=== PATIENT | male | born 1960 | race Caucasian/White ===

== ENCOUNTER 2016-06-15 18:01 | Inpatient (IN) | payer OTHER ==
--- NOTE | 2016-06-15 18:42 | ED ---
GI Bleed HPI - General Chief complaint: GI Bleed Stated complaint: GI bleed Time Seen by Provider: 06/15/16 18:01 Source: patient, RN/MD, EMS, RN notes reviewed, old records reviewed Mode of arrival: EMS Limitations: no limitations - History of Present Illness Initial comments: Is a 55-year-old male who was transferred from [facility] with a complaints of GI bleeding patient was seen yesterday he had a hemoglobin of about 12 today was noted to be around 8. He has had black colored diarrhea for last couple days. Some epigastric discomfort he has a history of ulcers many years ago he states he drinks only 2 beers per day he has no history of pancreatitis he has had some abdominal cramps for the past couple days. He also some lightheadedness dizziness and generalized weakness. He is having a history of seizures and peripheral vascular disease. He does still smoke. We did discuss the need for stopping this. MD complaint: melena - Related Data Home Medications Medication Instructions Recorded Confirmed Gabapentin [Neurontin] 100 mg PO TID 06/15/16 06/15/16 HYDROcodone/APAP 7.5-325MG [Rolla 1 tab PO Q6HR PRN 06/15/16 06/15/16 7.5-325] Hydrocortisone Cream 1 applic TOPICAL BID PRN 06/15/16 06/15/16 [Hydrocortisone 1% Cream] Loperamide [Imodium] 2 - 4 mg PO QID PRN 06/15/16 06/15/16 Meloxicam [Mobic] 7.5 mg PO BID 06/15/16 06/15/16 Sertraline [Zoloft] 50 mg PO BID 06/15/16 06/15/16 Triamcinolone 0.1% Cream [Kenalog] 1 applicatio TOPICAL TID 06/15/16 06/15/16 Zolpidem [Ambien] 10 mg PO HS 06/15/16 06/15/16 levETIRAcetam [Keppra Xr] 1,500 mg PO BID 06/15/16 06/15/16 Allergies Allergy/AdvReac Type Severity Reaction Status Date / Time latex Allergy Unknown Verified 06/15/16 19:08 thiopental [From Pentothal] Allergy Unknown Verified 06/15/16 19:08 phenosulfonate Allergy Unknown Uncoded 06/15/16 18:28 Review of Systems ROS Statement: Those systems with pertinent positive or pertinent negative responses have been documented in the HPI. ROS Other: All systems not noted in ROS Statement are negative. Past Medical History Past Medical History: COPD, Seizure Disorder History of Any Multi-Drug Resistant Organisms: None Reported Past Surgical History: Orthopedic Surgery Past Psychological History: Depression Smoking Status: Current every day smoker Past Alcohol Use History: Daily Past Drug Use History: None Reported General Exam - General Exam Comments Initial Comments: This is a well developed well-nourished awake alert oriented x w3 male Limitations: no limitations General appearance: alert, in no apparent distress Head exam: Present: atraumatic, normocephalic, normal inspection Eye exam: Present: normal appearance, PERRL, EOMI. Absent: scleral icterus, conjunctival injection, periorbital swelling ENT exam: Present: normal exam, mucous membranes moist Neck exam: Present: normal inspection. Absent: tenderness, meningismus, lymphadenopathy Respiratory exam: Present: normal lung sounds bilaterally. Absent: respiratory distress, wheezes, rales, rhonchi, stridor Cardiovascular Exam: Present: regular rate, normal rhythm, normal heart sounds. Absent: systolic murmur, diastolic murmur, rubs, gallop, clicks GI/Abdominal exam: Present: soft, normal bowel sounds. Absent: distended, tenderness, guarding, rebound, rigid Rectal exam: Present: deferred Extremities exam: Present: normal inspection, full ROM, normal capillary refill. Absent: tenderness, pedal edema, joint swelling, calf tenderness Back exam: Present: normal inspection Neurological exam: Present: alert, oriented X3, CN II-XII intact Psychiatric exam: Present: normal affect, normal mood Skin exam: Present: warm, dry, intact, pallor. Absent: normal color, rash Course Vital Signs 06/15/16 18:07 Temperature 97.8 F Pulse Rate 74 Respiratory 18 Rate Blood Pressure 112/73 O2 Sat by Pulse 100 Oximetry Medical Decision Making - Medical Decision Making I did review the material from the sending hospital patient will be admitted I did discuss the case with the hospitalist group. GI will be consulted. - EKG Data -: EKG Interpreted by Me EKG shows normal: sinus rhythm (Sinus rhythm with a rate of 61. Interval 162 QRS duration 82 QT/QTC of 416/418 is a sinus arrhythmia no acute changes) Disposition Clinical Impression: Melena, Anemia, GI bleed Disposition: ADMITTED IP TO THIS HOSP Condition: Stable
[2016-06-15] MEDS ORDERED: NALOXONE 0.4 MG/ML 1 ML VIAL IV PRN (19:39)
[2016-06-15] MEDS ORDERED: HYDROCORTISONE 1% CREAM 30 GM TUBE TOPICAL PRN (19:42)
[2016-06-15 20:40] LABS: CH 34.5; CHCM 32.8; HCT 21.2 % (39.0-53.0); HDW 2.25; MCH 34.6 pg (25.0-35.0); MCHC 32.8 g/dL (31.0-37.0); MCV 105.6 fL (80.0-100.0); Macrocytosis Moderate; Mean Platelet Volume 7.3; RBC 2.01 m/uL (4.30-5.90); RDW 13.8 % (11.5-15.5); WBC 5.3 k/uL (3.8-10.6)
[2016-06-15] MEDS ORDERED: ZOLPIDEM 10 MG TAB PO SCH (21:00)
[2016-06-15] MEDS ORDERED: TRIAMCINOLONE 0.1% CREAM 80 GM TUBE TOPICAL PRN (21:08)
[2016-06-15] MEDS: SODIUM CHLORIDE 0.9% 1,000 ML IV SCH (21:09)
[2016-06-15] MEDS ORDERED: FUROSEMIDE 10 MG/ML 2 ML VIAL IV ONE (21:48)
[2016-06-15] MEDS ORDERED: THIAMINE 100 MG/ML 2 ML VIAL IM STA (21:48)
[2016-06-15] MEDS ORDERED: LORazepam 2 MG/ML SYRINGE IV PRN ×3 (21:48)
[2016-06-15] MEDS: PANTOPRAZOLE 40 MG/10 ML VIAL IV SCH (21:50)
[2016-06-15] MEDS: SERTRALINE 100 MG TAB PO SCH (21:50)
[2016-06-15] MEDS: GABAPENTIN 100 MG CAP PO SCH (21:51)
[2016-06-15] MEDS: MELOXICAM 7.5 MG TAB PO SCH (21:51)
[2016-06-15] MEDS: NICOTINE 14MG/24HR PATCH TRANSDERM SCH (21:52)
[2016-06-15] MEDS ORDERED: TRIAMCINOLONE 0.1% CREAM 80 GM TUBE TOPICAL SCH (22:00)
[2016-06-15] MEDS: THIAMINE 100 MG TAB PO SCH (23:15)
[2016-06-16] MEDS ORDERED: FUROSEMIDE 10 MG/ML 2 ML VIAL ONE (02:15)
[2016-06-16] MEDS: SODIUM CHLORIDE 0.9% 1,000 ML IV SCH ×2 (07:45→21:41)
[2016-06-16] MEDS: MELOXICAM 7.5 MG TAB PO SCH (07:46)
[2016-06-16] MEDS: GABAPENTIN 100 MG CAP PO SCH ×3 (07:46→21:41)
[2016-06-16] MEDS: NICOTINE 14MG/24HR PATCH TRANSDERM SCH (07:47)
[2016-06-16] MEDS: PANTOPRAZOLE 40 MG/10 ML VIAL IV SCH ×2 (07:47→21:40)
[2016-06-16] MEDS: SERTRALINE 100 MG TAB PO SCH ×2 (07:48→21:41)
[2016-06-16] MEDS: THIAMINE 100 MG TAB PO SCH ×2 (07:48→16:33)
[2016-06-16 08:36] LABS: Anisocytosis Slight; Basophils # (A) 0.1 k/uL (0-0.2); Basophils % (A) 1 %; CH 31.5; Eosinophils # (A) 0.3 k/uL (0-0.7); Eosinophils % (A) 6 %; HCT 31.5 % (39.0-53.0); HDW 2.49; HGB 10.4 gm/dL (13.0-17.5); Luc # (Auto) 0.13; Luc % (Auto) 3; Lymphocytes # (A) 1.2 k/uL (1.0-4.8); Lymphocytes % (A) 24 %; MCH 31.7 pg (25.0-35.0); Macrocytosis Slight; Monocytes # (A) 0.3 k/uL (0-1.0); Monocytes % (A) 7 %; Neutrophils # (A) 2.9 k/uL (1.3-7.7); Neutrophils % (A) 60 %; RBC 3.28 m/uL (4.30-5.90); WBC 4.8 k/uL (3.8-10.6); WBC (Perox) 4.93
[2016-06-16 08:50] LABS: ALT 20 U/L (21-72); AST 19 U/L (17-59); Alkaline Phosphatase 56 U/L (38-126); Anion Gap 9 mmol/L; Blood Urea Nitrogen 12 mg/dL (9-20); Calcium 9.3 mg/dL (8.4-10.2); Carbon Dioxide 26 mmol/L (22-30); Chloride 106 mmol/L (98-107); Glucose 139 mg/dL (74-99); Non-African American GFR(MDRD) >60 (>60 ml/min/1.73 sqM); Potassium 4.2 mmol/L (3.5-5.1); Sodium 141 mmol/L (137-145); Total Bilirubin 1.3 mg/dL (0.2-1.3); Total Protein 6.2 g/dL (6.3-8.2)
[2016-06-16] MEDS ORDERED: NICOTINE 14MG/24HR PATCH TRANSDERM SCH (09:00)
[2016-06-16] MEDS ORDERED: MULTIVITAMINS, THERA 1 EACH TAB PO SCH (12:00)
[2016-06-16] MEDS ORDERED: LIDOCAINE 1% INJ 10MG/ML (20 ML MDV) ONE (13:51)
[2016-06-16] MEDS ORDERED: GLYCOPYRROLATE 0.2 MG/ML 2 ML VIAL ONE (13:51)
[2016-06-16] MEDS ORDERED: PROPOFOL 10 MG/ML 20 ML VIAL IV ONE (13:51)
[2016-06-16] MEDS ORDERED: IV FLUID CONTINUATION 150 ML IV ONE (13:52)
--- NOTE | 2016-06-16 14:21 | P.PCN ---
Date of Procedure: 06/16/16 Procedure(s) Performed: BRIEF HISTORY: Patient is a 55-year-old, pleasant, white male, transferred from [facility] when he presented with black tarry stools for the last 5 days duration. His hemoglobin was down to 7 g/dL and so far received 2 units of RBC transfusion. He scheduled for an upper endoscopy to evaluate further.. PROCEDURE PERFORMED: Esophagogastroduodenoscopy with biopsy. PREOPERATIVE DIAGNOSIS: Black tarry stools of 5 days duration and severe anemia. IV sedation per anesthesia. PROCEDURE: After informed consent was obtained, the patient was brought into the endoscopy unit. IV sedation was administered by Anesthesia under continuous monitoring. Initially the Olympus GIF-140 video endoscope was inserted into the mouth. Esophagus intubated without any difficulty. It was gradually advanced into the stomach and duodenum and carefully examined. The bulb and the second part of the duodenum appeared normal. The scope at this time was withdrawn to the stomach, adequately insufflated with air, and upon careful examination, mucosa of the antrum, there was a 2 cm deep clean-based ulceration identified with no active bleeding. Biopsies were done from the margin of the ulcer. The body, cardia and the fundus appeared normal. The scope was then withdrawn into the esophagus. Small hiatal hernia noted. The GE junction was located at 39 cm from the incisors. The esophagus appeared normal. There were no erosions or ulcerations seen and the patient tolerated the procedure well. IMPRESSION: 1. 2 cm clean-based antral ulcer with no active bleeding. 2. Mall hiatal hernia. RECOMMENDATIONS: The findings of this examination were discussed with the patient patient. At this time he'll be continued on Protonix 40 mg twice daily and was advised to avoid NSAIDs. He'll await the biopsy results. He'll be started on a full liquid diet today and if the hemoglobin is stable he can be advanced to regular diet tomorrow.
[2016-06-16 14:32] VITALS: BMI 19.8
[2016-06-16 14:59] LABS: Anisocytosis Slight; Basophils % (A) 1 %; CH 31.8; CHCM 33.1; Eosinophils # (A) 0.2 k/uL (0-0.7); Eosinophils % (A) 6 %; HCT 33.3 % (39.0-53.0); HDW 2.58; HGB 10.6 gm/dL (13.0-17.5); Luc # (Auto) 0.14; Luc % (Auto) 3; Lymphocytes % (A) 23 %; MCH 30.8 pg (25.0-35.0); MCHC 31.8 g/dL (31.0-37.0); MCV 96.7 fL (80.0-100.0); Macrocytosis Slight; Mean Platelet Volume 7.1; Monocytes # (A) 0.3 k/uL (0-1.0); Monocytes % (A) 8 %; Neutrophils # (A) 2.6 k/uL (1.3-7.7); Neutrophils % (A) 60 %; RBC 3.45 m/uL (4.30-5.90); RDW 19.2 % (11.5-15.5); WBC 4.3 k/uL (3.8-10.6); WBC (Perox) 4.26
--- NOTE | 2016-06-16 17:40 | CONS ---
DATE OF CONSULTATION: 06/16/2016 REASON FOR CONSULTATION: Acute GI bleed. HISTORY OF PRESENT ILLNESS: The patient is a 55-year-old pleasant white male who was transferred from [facility] last night when he presented there with black tarry stools for the last 5 days' duration. Apparently 2 days ago his hemoglobin was 12, and yesterday when he went back to the ER it was 8. He was subsequently transferred to [facility] and repeat hemoglobin here was 7. He received 2 units of PRBC transfusion. Since being over here, he has not had any further episodes of black tarry stools. He just had a couple of them yesterday. He does complain of some vague right upper quadrant abdominal pain. He reports no nausea or vomiting. No fever, chills, night sweats. He has a prior history of peptic ulcer disease in 1981. Recently he has been taking Mobic for degenerative joint disease. Past medical history is significant for: 1. Seizure disorder. 2. COPD. 3. History of peptic ulcer disease in the past. 4. Anxiety. 5. Depression. Medications at home include: 1. Neurontin. 2. [place]. 3. Hydrocortisone cream. 4. Imodium. 5. Mobic. 6. Zoloft. 7. Kenalog. 8. Ambien. 9. Keppra. ALLERGIES: PENTOTHAL and PHENOSULFONATE. SOCIAL HISTORY: Chronic smoker. No alcohol use. FAMILY HISTORY: Unremarkable. REVIEW OF SYSTEMS: CARDIOPULMONARY: No chest pain or shortness of breath. GENITOURINARY: No dysuria or hematuria. MUSCULOSKELETAL: Unremarkable. SKIN: Unremarkable. ENDOCRINE: Unremarkable. PSYCHIATRIC: Unremarkable. NEUROLOGY: Unremarkable. ENT/VISION: Unremarkable. CONSTITUTIONAL: No recent weight loss. No fever, chills, night sweats. On physical examination, he appears comfortable, in no apparent distress. Vitals signs are stable. Blood pressure is 103/66, pulse 73, temperature 98. HEENT: Unremarkable. Conjunctivae pink. Sclerae anicteric. Oral cavity with no lesions. NECK: No JVD or lymph node enlargement. Chest was clear to auscultation. HEART: Regular rate and rhythm. ABDOMEN: Soft. Bowel sounds are positive. No organomegaly. EXTREMITIES: No pedal edema. SKIN: No rashes. NEURO: He is alert and oriented x3. No focal deficits. LABS DONE AT THE TIME OF ADMISSION TO THE HOSPITAL: Hemoglobin 7, WBC 5.3, platelets 222. This morning hemoglobin is 10.4. IMPRESSION: Acute upper gastrointestinal bleed, possibly related to peptic ulcer disease. Patient has been having black tarry stools for the last 5 days' duration, dropped hemoglobin from 12 to 7 grams/dL requiring 2 units of blood transfusion. At present he is on IV proton pump inhibitors. He is hemodynamically stable. He still had 2 large black tarry stools last night; none this morning. RECOMMENDATIONS: 1. Will proceed with an upper endoscopy today. 2. Continue with IV proton pump inhibitors. 3. Avoid NSAIDs. 4. CBC every 6 hours. Will follow him closely during his hospital stay. Thank you for this consultation.
[2016-06-16] MEDS: HYDROcodone/APAP 7.5-325MG 1 EACH TAB PO PRN (18:20)
--- NOTE | 2016-06-16 21:05 | HP ---
DATE OF ADMISSION: Patient is a 55-year-old who came in with multiple episodes of dark stools with very low hemoglobin. Patient received 3 units of blood transfusion; now around 10. Patient when he came in had a hemoglobin around 7. Patient underwent upper GI endoscopy already which showed a non-bleeding peptic ulcer. Patient is on Protonix IV b.i.d. Patient is an alcoholic. Patient's ulcer is in the stomach on the antrum. Mild hiatal hernia was also appreciated. Patient does drink alcohol most of the days in a week. Does not drink alcohol regularly. Patient is also on meloxicam, not on any aspirin or any blood thinners. Patient denied any fever or chills. Patient was having lightheadedness, dizziness and generalized weakness. Patient does have a history of seizures and peripheral vascular disease in the past. REVIEW OF SYSTEMS: CONSTITUTIONAL: No fever, no malaise, no fatigue. HEENT: No recent visual problems or hearing problems. Denied any sore throat. CARDIOVASCULAR: No chest pain, orthopnea, PND, no palpitations, no syncope. PULMONARY: No shortness of breath, no cough, no hemoptysis. GASTROINTESTINAL: As described in HPI. NEUROLOGICAL: No headaches, no weakness, no numbness. HEMATOLOGICAL: Denies any bleeding or petechiae. GENITOURINARY: Denies any burning micturition, frequency, or urgency. MUSCULOSKELETAL/RHEUMATOLOGICAL: Denies any joint pain, swelling, or any muscle pain. ENDOCRINE: Denies any polyuria or polydipsia. The rest of the 14 point review of systems is negative. Home medications include: 1. Gabapentin. 2. Hydrocodone/acetaminophen. 3. Hydrocortisone. 4. Imodium. 5. Meloxicam. 6. Sertraline. 7. Triamcinolone. 8. Zolpidem. 9. Levetriacetam. ALLERGIES: 1. LATEX. 2. PENTOTHAL SODIUM. Past medical history is significant for: 1. COPD. 2. Seizure disorder. 3. Alcoholism. SOCIAL HISTORY: Patient does smoke every day. Alcohol abuse history but does not drink regularly; drinks almost 2 to 3 beers almost every day in a week, but not on a regular basis. Denied any drug abuse. FAMILY HISTORY: Significant for hypertension and lung cancer. PHYSICAL EXAMINATION: VITAL SIGNS: Temperature 97.4, pulse of 68, respiratory rate of 18. Blood pressure is 104/66. Saturating at 95% on room air. GENERAL: The patient is alert and oriented x3, not in any acute distress. Well developed, well nourished. HEENT: Patient does have conjunctival pallor. Pupils round and equally reacting to light. No scleral icterus was appreciated. Patient generally looks pale as well. Normocephalic, atraumatic. No pharyngeal erythema. No thyromegaly. CARDIOVASCULAR: S1 and S2 present. No murmurs, rubs, or gallops. PULMONARY: Chest is clear to auscultation, no wheezing or crackles. ABDOMEN: Soft, nontender, nondistended, normoactive bowel sounds. No palpable organomegaly. MUSCULOSKELETAL: No joint swelling or deformity. EXTREMITIES: No cyanosis, clubbing, or pedal edema. NEUROLOGICAL: Gross neurological examination did not reveal any focal deficits. SKIN: No rashes. LABORATORY DATA: CBC, CMP are abnormal for low hemoglobin of 7.0. Today patient did not have any episodes of dark stools. C difficile was also ordered by Gastroenterology, although patient did not have any dark stools today. Hemoglobin improved to 10.4. ASSESSMENT AND PLAN: 1. Upper gastrointestinal bleed. 2. Alcohol abuse history. Patient will be watched for withdrawals. 3. Seizure disorder. Will continue with Keppra. Patient is on Keppra at home. We will watch him one more day. Patient will be transferred out of [facility]. 4. Acute blood loss anemia from upper gastrointestinal bleed. 5. 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 Continue with Gabapentin.
[2016-06-16] MEDS ORDERED: ZOLPIDEM 10 MG TAB PO PRN (21:47)
[2016-06-17] MEDS: HYDROcodone/APAP 7.5-325MG 1 EACH TAB PO PRN ×2 (00:10→08:32)
[2016-06-17 07:34] VITALS: RESP 16; TEMP 97.4
[2016-06-17 07:45] LABS: Anisocytosis Slight; CH 31.7; CHCM 32.7; HCT 28.3 % (39.0-53.0); HDW 2.58; HGB 9.2 gm/dL (13.0-17.5); MCH 31.8 pg (25.0-35.0); MCHC 32.6 g/dL (31.0-37.0); MCV 97.5 fL (80.0-100.0); Macrocytosis Slight; Mean Platelet Volume 8.2; RDW 18.8 % (11.5-15.5); WBC 5.1 k/uL (3.8-10.6)
[2016-06-17 08:05] LABS: Anion Gap 7 mmol/L; Blood Urea Nitrogen 8 mg/dL (9-20); Calcium 8.9 mg/dL (8.4-10.2); Carbon Dioxide 23 mmol/L (22-30); Chloride 108 mmol/L (98-107); Glucose 91 mg/dL (74-99); Non-African American GFR(MDRD) >60 (>60 ml/min/1.73 sqM); Potassium 4.2 mmol/L (3.5-5.1); Sodium 138 mmol/L (137-145)
[2016-06-17] MEDS: PANTOPRAZOLE 40 MG/10 ML VIAL IV SCH (08:33)
[2016-06-17] MEDS: GABAPENTIN 100 MG CAP PO SCH (08:33)
[2016-06-17] MEDS: NICOTINE 14MG/24HR PATCH TRANSDERM SCH (08:33)
[2016-06-17] MEDS: SERTRALINE 100 MG TAB PO SCH (08:34)
[2016-06-17] MEDS: SODIUM CHLORIDE 0.9% 1,000 ML IV SCH (08:34)
--- NOTE | 2016-06-17 14:26 | PN ---
DATE OF SERVICE: 06/17/2016 Patient is a 55-year-old white male admitted to the hospital 2 days ago with acute GI bleed. He had an upper endoscopy done yesterday that showed a 2 cm antral ulcer with a clean base and no active bleeding. He was on Protonix 40 mg q.12 hours. He is doing better. He has no further bleeding. He wants to go home today. On physical examination, he appears comfortable, no apparent distress. Vital signs are stable. Blood pressure 112/63, pulse is 74, temperature 96.3. HEENT: Unremarkable. Conjunctivae pink. Sclerae anicteric. Oral cavity, no lesions. NECK: No JVD or lymph node enlargement. Chest was clear to auscultation. HEART: Regular rate and rhythm. ABDOMEN: Soft. Bowel sounds are positive. No organomegaly. EXTREMITIES: No pedal edema. SKIN: No rashes. NEURO: Alert and oriented x3. No focal deficits. Labs from today, hemoglobin 9.2. IMPRESSION: Acute upper gastrointestinal bleed secondary to 2 cm gastric ulcer noted on upper endoscopy yesterday. Presently on Protonix 40 mg q.12 hours and doing well. No further bleeding. RECOMMENDATIONS: 1. Advance to a regular diet. 2. Continue Prilosec 20 mg twice daily. 3. Avoid meloxicam. 4. Follow up in the office in 2 to 4 weeks.
--- NOTE | 2016-06-18 11:59 | DS ---
DATE OF ADMISSION: 06/15/2016 DATE OF DISCHARGE: 06/17/2016 Patient is a 55-year-old admitted with dark stools, found to have upper gastrointestinal bleed. Patient has nonbleeding ulcer in the stomach. Patient did not have any bowel movement since yesterday. Hemoglobin is relatively stable. Patient will be discharged today in stable medical condition to home. Patient was seen and examined on the day of discharge. Vitals are stable. PHYSICAL EXAMINATION: GENERAL: The patient is alert and oriented x3, not in any acute distress. Well developed, well nourished. HEENT: Pupils are round and equally reacting to light. EOMI. No scleral icterus. No conjunctival pallor. Normocephalic, atraumatic. No pharyngeal erythema. No thyromegaly. CARDIOVASCULAR: S1 and S2 present. No murmurs, rubs, or gallops. PULMONARY: Chest is clear to auscultation, no wheezing or crackles. ABDOMEN: Soft, nontender, nondistended, normoactive bowel sounds. No palpable organomegaly. MUSCULOSKELETAL: No joint swelling or deformity. EXTREMITIES: No cyanosis, clubbing, or pedal edema. NEUROLOGICAL: Gross neurological examination did not reveal any focal deficits. SKIN: No rashes. ASSESSMENT AND PLAN: 1. Upper GI bleed. Extensive counseling regarding alcohol abuse was provided and patient was anxious yesterday night because of which he received one dose of Ativan. Not much withdrawal at this point of time and patient was instructed not to use NSAIDs as well. 2. Alcohol abuse history. Patient was watched for alcohol withdrawal. 3. Seizure disorder. 4. Acute blood loss anemia from gastrointestinal bleed. 5. Peripheral neuropathy. Patient will be discharged today. Please refer to my depart summary for the details of discharge medications and patient will follow with Dr. Robert Kirby, his primary care physician in 3 to 7 days. Activity as tolerated. Low spicy diet cardiac diet. I spent greater than 35 minutes in total discharge process.
[2016-06-21 15:16] VITALS: BP 98/55; PULSE 67
== END 2016-06-17 12:30 | disposition home or self-care (01) | DRG 378 ==
LOC: EC 18:01 → SUPCPDRO 18:01 → 5MS5E 19:38 → 6SEL 22:48 → 5MS5E 06-16 17:38
PROVIDERS: ADMIT Internal Medicine; ATTEND Internal Medicine
PROC: 30233N1 Transfusion of Nonautologous Red Blood Cells into Peripheral Vein, Percutaneous Approach (ICD-10-PCS; 2016-06-15)
PROC: 0DB68ZX Excision of Stomach, Via Natural or Artificial Opening Endoscopic, Diagnostic (ICD-10-PCS; principal; 2016-06-16 08:05)
DX: K25.4 Chronic or unspecified gastric ulcer with hemorrhage (principal); D62 Acute posthemorrhagic anemia; G62.1 Alcoholic polyneuropathy; F32.9 Major depressive disorder, single episode, unspecified; J44.9 Chronic obstructive pulmonary disease, unspecified; F10.20 Alcohol dependence, uncomplicated; G40.909 Epilepsy, unspecified, not intractable, without status epilepticus; K44.9 Diaphragmatic hernia without obstruction or gangrene; F41.9 Anxiety disorder, unspecified; I73.9 Peripheral vascular disease, unspecified; R53.1 Weakness; M19.90 Unspecified osteoarthritis, unspecified site; F17.200 Nicotine dependence, unspecified, uncomplicated; Z82.49 Family history of ischemic heart disease and other diseases of the circulatory system; Z80.1 Family history of malignant neoplasm of trachea, bronchus and lung; Z79.899 Other long term (current) drug therapy; Z87.11 Personal history of peptic ulcer disease; Z71.3 Dietary counseling and surveillance; Z71.6 Tobacco abuse counseling; Z71.41 Alcohol abuse counseling and surveillance of alcoholic; Z91.040 Latex allergy status; Z88.5 Allergy status to narcotic agent; Z88.8 Allergy status to other drugs, medicaments and biological substances; Z91.048 Other nonmedicinal substance allergy status; Z79.1 Long term (current) use of non-steroidal anti-inflammatories (NSAID); Z79.891 Long term (current) use of opiate analgesic
CPT/HCPCS: 43239; 80048; 80053; 85025; 85027; 85610; 86850; 86900; 86901; 86920; 88305; 88342; 93005; 96372; 99285